=== PATIENT | female | born 1985 | race Caucasian/White ===

== ENCOUNTER → 2016-09-19 | Outpatient (CLI) | payer SELFPAY ==
[~2016-09-19] MED LIST: ACET-62 PO; MEDR150V INJ; OXYM30SP EA NOSTRIL
--- NOTE | 2016-09-19 14:33 | DI ---
Indication: ITS.REASON: R51 HEADACHE PROCEDURE: CT HEAD W/O CONTRAST: Encounter: Initial Comparison: None Technique: Axial CT images through the head were performed without contrast. Iterative Reconstruction dose reducing technique was utilized. FINDINGS: The ventricles are of normal size, shape, and contour for the patient's age. The brainstem, cerebellum, and cerebral hemispheres have a normal morphology and CT attenuation. There is no evidence of midline displacement. No hemorrhage, signs of acute territorial stroke, mass effect, mass lesions, or edema is evident. The visualized portions of the skull base, midface, and calvarium demonstrate no abnormality. The paranasal sinuses are well aerated and free of significant disease. The tympanic and mastoid cavities appear normal. IMPRESSION: No acute intracranial abnormality or hemorrhage. Normal exam. .
== END ==
LOC: IMA 13:20
PROVIDERS: ATTEND Family Medicine
DX: R51 Headache (principal)